=== PATIENT | female | born 1990 | race Caucasian/White ===

== ENCOUNTER → 2018-09-26 | Outpatient (CLI) | payer SELFPAY | LOC: BHSO 10:40 | DX: F41.1 Generalized anxiety disorder (principal) ==

== ENCOUNTER → 2018-10-06 | Outpatient (CLI) | payer SELFPAY | LOC: BHSO 09:53 | DX: F41.1 Generalized anxiety disorder (principal) ==

== ENCOUNTER → 2018-10-14 | Outpatient (CLI) | payer SELFPAY | LOC: BHSO 10:48 | DX: F41.1 Generalized anxiety disorder (principal) ==

== ENCOUNTER → 2018-10-20 | Outpatient (CLI) | payer SELFPAY | LOC: BHSO 10:48 | DX: F41.1 Generalized anxiety disorder (principal) ==

== ENCOUNTER → 2018-11-13 | Outpatient (CLI) | payer SELFPAY | LOC: BHSO 09:52 | DX: F41.1 Generalized anxiety disorder (principal) ==

== ENCOUNTER → 2018-11-27 | Outpatient (CLI) | payer SELFPAY | LOC: BHSO 10:50 | DX: F41.1 Generalized anxiety disorder (principal) ==

== ENCOUNTER → 2018-12-11 | Outpatient (CLI) | payer SELFPAY | LOC: BHSO 08:56 | DX: F41.1 Generalized anxiety disorder (principal) ==